=== PATIENT | male | born 1985 | race African-American/Black ===

== ENCOUNTER 2020-04-11 05:26 | Inpatient (IN) | payer MEDICAID, OTHER ==
[~2020-04-11] VITALS: Ht 170.2 cm; Wt 131.1 kg
[~2020-04-11 05:26] MED LIST: CARV12.545 PO; FURO40TA5 PO; ISOS30TA91 PO; PANT40TA51 PO; SPIR25TA6 PO
[2020-04-11 06:02] LABS: BASOPHILS % 1.1 % (0.0-2.0); EOSINOPHILS % 1.2 % (0.0-5.0); HEMATOCRIT. 44.6 % (42.0-52.0); HEMOGLOBIN. 14.5 g/dL (14.0-18.0); LYMPHOCYTES % 19.9 % (20.0-50.0); MEAN CORPUSCULAR HEMOGLOBIN 27.5 pg (28.0-32.0); MEAN CORPUSCULAR VOLUME 84.8 fL (80.0-94.0); MEAN PLATELET VOLUME 9.2 fl (7.4-10.4); MONOCYTES % 7.9 % (2.0-8.0); NEUTROPHILS % 69.9 % (40.0-76.0); PLATELET 253 x1000/uL (130-400); RED BLOOD CELL COUNT 5.25 mill/uL (4.7-6.1); RED CELL DISTRIBUTION WIDTH 17.9 % (11.6-14.6)
[2020-04-11 06:14] LABS: CHLORIDE 104 mEq/L (98-107)
[2020-04-11] MEDS ORDERED: ONDANSETRON HCL 4MG/2ML INJ IV ONE (06:15)
[2020-04-11] MEDS ORDERED: FUROSEMIDE 20MG/2ML VIAL IVP ONE (06:15)
[2020-04-11 08:48] LABS: CLARITY URINE CLEAR (CLEAR); COLOR URINE YELLOW (YELLOW); KETONES URINE NEGATIVE (NEGATIVE); LEUKOCYTE ESTERASE URINE NEGATIVE (NEGATIVE); NITRITE URINE NEGATIVE (NEGATIVE); OCCULT BLOOD URINE NEGATIVE (NEGATIVE); PH URINE 6.5 (4.5-8.0); PROTEIN URINE 2+ (NEGATIVE); SPECIFIC GRAVITY URINE 1.011 (1.005-1.030)
[2020-04-11 09:20] VITALS: BP 132/95
[2020-04-11 10:00] VITALS: BP 123/97
[2020-04-11] MEDS ORDERED: GUAIFENESIN 200MG/10ML SUGAR FREE UDC PO PRN (11:45)
[2020-04-11] MEDS ORDERED: ACETAMINOPHEN 325MG TABLET PO PRN (11:45)
[2020-04-11] MEDS ORDERED: ENOXAPARIN 40MG/0.4ML SYR SUBCUT SCH (11:45)
[2020-04-11] MEDS ORDERED: CLONIDINE 0.1MG TABLET PO PRN (11:45)
[2020-04-11] MEDS ORDERED: MAGNESIUM/ALUMINUM HYDROXIDE/SIMETHICONE 30ML UDC PO PRN (11:45)
[2020-04-11] MEDS ORDERED: DOCUSATE SODIUM 100MG CAPSULE PO PRN (11:45)
[2020-04-11] MEDS ORDERED: HYDROCODONE/ACETAMINOPHEN 5/325MG TABLET PO PRN (11:45)
[2020-04-11 12:00] VITALS: BP 120/94
[2020-04-11] MEDS: ENOXAPARIN 30MG/0.3ML SYR SUBCUT SCH ×2 (13:06→20:44)
[2020-04-11] MEDS: FUROSEMIDE 40MG/4ML VIAL IV SCH (13:06)
[2020-04-11] MEDS: SPIRONOLACTONE 25MG TABLET PO SCH (13:07)
[2020-04-11] MEDS: LISINOPRIL 20MG TABLET PO SCH (13:07)
[2020-04-11 16:00] VITALS: BP 120/89
[2020-04-11 20:23] VITALS: BP 123/83
[2020-04-11] MEDS: CARVEDILOL 12.5MG TABLET PO SCH (20:43)
[2020-04-11] MEDS ORDERED: ATORVASTATIN CALCIUM 40MG TABLET PO SCH (21:00)
[2020-04-12 00:16] VITALS: BP 101/76
[2020-04-12 04:00] VITALS: BP 97/66
[2020-04-12 06:43] LABS: CHLORIDE 103 mEq/L (98-107)
[2020-04-12 06:47] LABS: EOSINOPHILS % 0.7 % (0.0-5.0); HEMATOCRIT. 38.9 % (42.0-52.0); HEMOGLOBIN. 12.8 g/dL (14.0-18.0); LYMPHOCYTES % 15.7 % (20.0-50.0); MEAN CORPUSCULAR HEMOGLOBIN 28.2 pg (28.0-32.0); MEAN CORPUSCULAR VOLUME 85.4 fL (80.0-94.0); MEAN PLATELET VOLUME 9.2 fl (7.4-10.4); MONOCYTES % 8.8 % (2.0-8.0); NEUTROPHILS % 73.8 % (40.0-76.0); PLATELET 223 x1000/uL (130-400); RED BLOOD CELL COUNT 4.55 mill/uL (4.7-6.1); RED CELL DISTRIBUTION WIDTH 17.3 % (11.6-14.6)
[2020-04-12 06:55] LABS: LDL CHOLESTEROL 75 mg/dL (5-100)
[2020-04-12 06:59] LABS: HDL CHOLESTEROL 14 mg/dL (40-59)
[2020-04-12 08:00] VITALS: BP 119/82
[2020-04-12] MEDS: SPIRONOLACTONE 25MG TABLET PO SCH (08:35)
[2020-04-12] MEDS: LISINOPRIL 20MG TABLET PO SCH (08:35)
[2020-04-12] MEDS: FUROSEMIDE 40MG/4ML VIAL IV SCH (08:35)
[2020-04-12] MEDS: CARVEDILOL 12.5MG TABLET PO SCH (08:36)
[2020-04-12] MEDS: ENOXAPARIN 30MG/0.3ML SYR SUBCUT SCH (08:36)
[2020-04-12] MEDS ORDERED: ASPIRIN 81MG EC TABLET PO SCH (09:00)
[2020-04-12 10:31] VITALS: BP 100/68
== END 2020-04-12 13:44 | disposition home or self-care (01) | DRG 194 ==
LOC: ER 05:26 → EDBEDREQ 06:18 → ENRESERV 08:32 → 6WST 10:12
PROVIDERS: ADMIT Hospitalist; ATTEND Hospitalist
DX: I11.0 Hypertensive heart disease with heart failure (principal); J96.00 Acute respiratory failure, unspecified whether with hypoxia or hypercapnia; E78.00 Pure hypercholesterolemia, unspecified; E66.9 Obesity, unspecified; E78.5 Hyperlipidemia, unspecified; I50.23 Acute on chronic systolic (congestive) heart failure; Z82.49 Family history of ischemic heart disease and other diseases of the circulatory system; Z79.84 Long term (current) use of oral hypoglycemic drugs; Z79.899 Other long term (current) drug therapy; Z68.42 Body mass index [BMI] 45.0-49.9, adult
CPT/HCPCS: 36415; 71045; 74176; 80053; 80061; 81003; 83880; 84484; 85025; 93005; 93970; 99291; J1650; J1940; J2405

== ENCOUNTER 2021-11-01 00:39 | Inpatient (IN) | payer OTHER, MEDICAID ==
[~2021-11-01] VITALS: Ht 175.3 cm; Wt 109.0 kg
[2021-11-01 01:15] LABS: HEMATOCRIT. 45.2 % (42.0-52.0); HEMOGLOBIN. 15.3 g/dL (14.0-18.0); MEAN CORPUSCULAR VOLUME 91.7 fL (80.0-94.0); MEAN PLATELET VOLUME 9.2 fl (7.4-10.4); PLATELET 220 x1000/uL (130-400); RED BLOOD CELL COUNT 4.93 mill/uL (4.7-6.1); RED CELL DISTRIBUTION WIDTH 18.4 % (11.6-14.6)
[2021-11-01 01:53] LABS: CHLORIDE 97 mEq/L (98-107)
[2021-11-01] MEDS ORDERED: ACETAMINOPHEN 325MG TABLET PO ONE (02:15)
[2021-11-01 04:00] LABS: PLATELET ESTIMATE NORMAL
[2021-11-01 09:30] VITALS: BP 105/70
[2021-11-01] MEDS ORDERED: ASPI-1497 PO (10:10)
[2021-11-01] MEDS: FUROSEMIDE 40MG/4ML VIAL IVP SCH ×3 (10:30→18:08)
[2021-11-01] MEDS: LOSARTAN POTASSIUM 50 MG TABLET PO SCH (10:30)
[2021-11-01] MEDS ORDERED: ENOXAPARIN 40MG/0.4ML SYR SUBCUT SCH (11:00)
[2021-11-01] MEDS: POTASSIUM CHLORIDE 20MEQ TABLET SR PO SCH ×2 (11:21→16:21)
[2021-11-01 12:00] VITALS: BP 107/82
[2021-11-01] MEDS ORDERED: ONDANSETRON HCL 4MG/2ML INJ IV PRN (12:00)
[2021-11-01] MEDS ORDERED: ACETAMINOPHEN 325MG TABLET PO PRN (12:00)
[2021-11-01 16:00] VITALS: BP 101/78
[2021-11-01 16:29] LABS: CREATINE KINASE 71 IU/L (39-308); CREATINE KINASE MB FRACTION < 1.0 ng/mL (0.5-3.6)
[2021-11-01] MEDS ORDERED: SPIRONOLACTONE 5MG/ML 1ML ORAL SYR(NEO) PO SCH (17:00)
[2021-11-01] MEDS ORDERED: FUROSEMIDE 40MG TABLET PO SCH (17:00)
[2021-11-01] MEDS ORDERED: CARVEDILOL 12.5MG TABLET PO SCH (17:00)
[2021-11-01 20:00] VITALS: BP 90/68
[2021-11-01] MEDS: CARVEDILOL 3.125 MG TABLET PO SCH (20:44)
[2021-11-01 23:31] LABS: CREATINE KINASE 86 IU/L (39-308); CREATINE KINASE MB FRACTION < 1.0 ng/mL (0.5-3.6)
[2021-11-02] VITALS: BP 126/84
[2021-11-02 04:00] VITALS: BP 135/57
[2021-11-02 07:29] LABS: BASOPHILS % 1.6 % (0.0-2.0); EOSINOPHILS % 0.3 % (0.0-5.0); HEMATOCRIT. 46.7 % (42.0-52.0); HEMOGLOBIN. 15.5 g/dL (14.0-18.0); LYMPHOCYTES % 19.5 % (20.0-50.0); MEAN CORPUSCULAR VOLUME 93.5 fL (80.0-94.0); MEAN PLATELET VOLUME 9.9 fl (7.4-10.4); NEUTROPHILS % 66.6 % (40.0-76.0); PLATELET 221 x1000/uL (130-400); RED BLOOD CELL COUNT 4.99 mill/uL (4.7-6.1); RED CELL DISTRIBUTION WIDTH 18.4 % (11.6-14.6)
[2021-11-02 08:00] VITALS: BP 109/77
[2021-11-02] MEDS: PANTOPRAZOLE 40MG DR TABLET PO SCH (08:12)
[2021-11-02] MEDS: ASPIRIN 81MG EC TABLET PO SCH (08:12)
[2021-11-02] MEDS: POTASSIUM CHLORIDE 20MEQ TABLET SR PO SCH ×2 (08:13→16:11)
[2021-11-02] MEDS: ISOSORBIDE MONONITRATE 30MG TABLET SR 24HR PO SCH (08:13)
[2021-11-02] MEDS: LOSARTAN POTASSIUM 50 MG TABLET PO SCH (08:13)
[2021-11-02] MEDS: FUROSEMIDE 40MG/4ML VIAL IVP SCH ×2 (08:13→16:11)
[2021-11-02] MEDS: CARVEDILOL 3.125 MG TABLET PO SCH ×2 (08:13→21:00)
[2021-11-02 08:41] LABS: CHLORIDE 96 mEq/L (98-107)
[2021-11-02 12:00] VITALS: BP 105/75
[2021-11-02] MEDS: SPIRONOLACTONE 50MG TABLET PO SCH (12:54)
[2021-11-02] MEDS: ENOXAPARIN 30MG/0.3ML SYR SUBCUT SCH ×2 (12:54→21:57)
[2021-11-02] MEDS ORDERED: MAGNESIUM 2 G PREMIX 50 ML IV PRN (15:00)
[2021-11-02 16:00] VITALS: BP 107/72
[2021-11-02 20:00] VITALS: BP 100/70
[2021-11-03] VITALS: BP 115/70
[2021-11-03] MEDS ORDERED: MAGNESIUM 2 G PREMIX 50 ML IV NR (00:45)
[2021-11-03 03:08] VITALS: BP 107/70
[2021-11-03 05:35] LABS: BASOPHILS % 1.3 % (0.0-2.0); EOSINOPHILS % 0.8 % (0.0-5.0); MEAN CORPUSCULAR HEMOGLOBIN 30.7 pg (28.0-32.0); MEAN CORPUSCULAR VOLUME 93.8 fL (80.0-94.0); NEUTROPHILS % 64.9 % (40.0-76.0); PLATELET 234 x1000/uL (130-400); RED BLOOD CELL COUNT 5.22 mill/uL (4.7-6.1); RED CELL DISTRIBUTION WIDTH 18.6 % (11.6-14.6)
[2021-11-03 08:00] VITALS: BP 111/85
[2021-11-03] MEDS: POTASSIUM CHLORIDE 20MEQ TABLET SR PO SCH ×2 (08:47→16:17)
[2021-11-03] MEDS: ISOSORBIDE MONONITRATE 30MG TABLET SR 24HR PO SCH (08:49)
[2021-11-03] MEDS: PANTOPRAZOLE 40MG DR TABLET PO SCH (08:49)
[2021-11-03] MEDS: SPIRONOLACTONE 50MG TABLET PO SCH (08:49)
[2021-11-03] MEDS: ASPIRIN 81MG EC TABLET PO SCH (08:49)
[2021-11-03] MEDS: LOSARTAN POTASSIUM 50 MG TABLET PO SCH (08:50)
[2021-11-03] MEDS: CARVEDILOL 3.125 MG TABLET PO SCH ×2 (08:50→21:00)
[2021-11-03] MEDS: FUROSEMIDE 40MG/4ML VIAL IVP SCH ×2 (08:51→17:32)
[2021-11-03] MEDS: ENOXAPARIN 30MG/0.3ML SYR SUBCUT SCH ×2 (08:52→22:03)
[2021-11-03] MEDS ORDERED: NON FORMULARY PATIENT HOME MED XX SCH (10:45)
[2021-11-03 12:00] VITALS: BP 107/78
[2021-11-03] MEDS: MAGNESIUM OXIDE 400MG TABLET PO SCH (13:21)
[2021-11-03] MEDS ORDERED: POTA-189 PO (13:41)
[2021-11-03] MEDS ORDERED: SACU1TAB MT (14:22)
[2021-11-03] MEDS ORDERED: EMPA10TA MT (14:22)
[2021-11-03 16:00] VITALS: BP 119/62
[2021-11-03] MEDS ORDERED: SACUBITRIL/VALSARTAN 24MG/26MG TABLET PO NR (17:00)
[2021-11-03 20:00] VITALS: BP 95/66
[2021-11-04] VITALS: BP 99/74
[2021-11-04] MEDS: FUROSEMIDE 40MG/4ML VIAL IVP SCH ×2 (02:18→09:51)
[2021-11-04 04:00] VITALS: BP 111/87
[2021-11-04 06:41] LABS: BASOPHILS % 1.4 % (0.0-2.0); EOSINOPHILS % 1.6 % (0.0-5.0); HEMATOCRIT. 47.5 % (42.0-52.0); HEMOGLOBIN. 15.6 g/dL (14.0-18.0); MEAN CORPUSCULAR HEMOGLOBIN 30.8 pg (28.0-32.0); MEAN CORPUSCULAR VOLUME 93.8 fL (80.0-94.0); PLATELET 243 x1000/uL (130-400); RED BLOOD CELL COUNT 5.07 mill/uL (4.7-6.1); RED CELL DISTRIBUTION WIDTH 18.5 % (11.6-14.6)
[2021-11-04 07:36] LABS: CHLORIDE 97 mEq/L (98-107)
[2021-11-04 08:00] VITALS: BP 122/70
[2021-11-04] MEDS: SPIRONOLACTONE 50MG TABLET PO SCH (08:17)
[2021-11-04] MEDS: ENOXAPARIN 30MG/0.3ML SYR SUBCUT SCH (08:17)
[2021-11-04] MEDS: POTASSIUM CHLORIDE 20MEQ TABLET SR PO SCH (08:17)
[2021-11-04] MEDS: CARVEDILOL 3.125 MG TABLET PO SCH (08:18)
[2021-11-04] MEDS: ISOSORBIDE MONONITRATE 30MG TABLET SR 24HR PO SCH (08:18)
[2021-11-04] MEDS: MAGNESIUM OXIDE 400MG TABLET PO SCH (08:18)
[2021-11-04] MEDS: PANTOPRAZOLE 40MG DR TABLET PO SCH (08:18)
[2021-11-04] MEDS: ASPIRIN 81MG EC TABLET PO SCH (08:22)
[2021-11-04] MEDS ORDERED: ENTRESTO PO SCH (09:00)
[2021-11-04 10:56] VITALS: BP 122/70
[2021-11-05] MEDS ORDERED: FAMOTIDINE 20MG TABLET PO SCH (09:00)
== END 2021-11-04 11:42 | disposition home or self-care (01) | DRG 291 ==
LOC: ER 00:39 → MICUSO 05:29 → EDBEDREQ 05:32 → 8WST 09:57
PROVIDERS: ADMIT Internal Medicine; ATTEND Internal Medicine
DX: I11.0 Hypertensive heart disease with heart failure (principal); I50.43 Acute on chronic combined systolic (congestive) and diastolic (congestive) heart failure; I42.9 Cardiomyopathy, unspecified; E87.6 Hypokalemia; E66.9 Obesity, unspecified; E78.00 Pure hypercholesterolemia, unspecified; E83.42 Hypomagnesemia; G47.33 Obstructive sleep apnea (adult) (pediatric); I44.7 Left bundle-branch block, unspecified; Z68.35 Body mass index [BMI] 35.0-35.9, adult; Z79.899 Other long term (current) drug therapy
CPT/HCPCS: 36415; 71045; 80048; 80053; 82550; 82553; 83735; 83880; 84484; 85025; 93005; 93306; 93970; 99285; C1893; J1650; J1940; J3475